=== PATIENT | female | born 1955 | race Caucasian/White ===

== ENCOUNTER 2018-10-19 08:34 | Outpatient (CLI) | payer OTHER ==
--- NOTE | 2018-10-19 11:13 | BD ---
BONE DENSITOMETRY USING DEXA: Date: 10/19/18 HISTORY: Postmenopausal screening for osteoporosis. FINDINGS: Lumbar Spine: BMD (g/cm2) L1 0.978 T-Score: -1.0 Z-Score: 1.5 L2 1.159 T-Score: 1.2 Z-Score: 3.0 L3 1.070 T-Score: -0.1 Z-Score: 1.7 L4 1.020 T-Score: -0.4 Z-Score: 1.6 L1-L4 1.054 T-Score: 0.1 Z-Score: 1.9 Femoral Neck: 0.622 T-Score: -2.0 Z-Score: -0.5 Total Femur: 0.729 T-Score: -1.7 Z-Score: -0.5 IMPRESSION: Osteopenia. POS: SARAH
== END 2018-10-19 08:35 | disposition home or self-care (01) ==
LOC: BICMAMMO 08:34
PROVIDERS: ATTEND Student in an Organized Health Care Education/Training Program
DX: Z13.820 Encounter for screening for osteoporosis (principal); M85.859 Other specified disorders of bone density and structure, unspecified thigh
CPT/HCPCS: 77080

== ENCOUNTER 2018-12-18 10:16 | Outpatient (CLI) | payer OTHER ==
[2018-12-18] MEDS ORDERED: Iopamidol 370 76% 100 ML VIAL ONE (12:22)
--- NOTE | 2018-12-18 14:32 | CT ---
Exam: Abdomen CT with and without contrast HISTORY: Abnormal liver serum enzymes. History of resection of the left lower intestine. COMPARISON: None TECHNIQUE: Abdomen CT is performed with and without contrast FINDINGS: Lung bases: Minimal atelectatic change Liver: Appropriate attenuation of the noncontrast series. There is appropriate enhancement arterial p hase as well as portal venous phase. No enhancing masses. Spleen: Appropriate enhancement Pancreas: Appropriate enhancement Adrenal glands: Symmetric enhancement Lymph nodes: No gastrohepatic, retrocrural or periportal lymphadenopathy Portal vein: Patent Gallbladder: Unremarkable Kidneys: Symmetric enhancement kidneys. Bilaterally no obstructive uropathy. There is a well-circumsc ribed hypodensity in the left renal cortex with attenuation coefficient of 4 Hounsfield units on the noncontrast sequence. Hypodensity corresponds to a 2.1 x 1.6 cm cyst. Mesentery: No mass, nephropathy, free air or free fluid Alimentary canal: Limited evaluation due to lack of oral contrast administration. With regards to the visualized alimentary canal, no evidence of bowel obstruction. The ileocecal junction is normal. Normal caliber appendix. Scattered fecal material in a nondistended/nondilated colon. No lytic or blastic lesions in the osseous structures IMPRESSION: No abnormal enhancing masses within the liver.
== END 2018-12-18 10:17 | disposition home or self-care (01) ==
LOC: CT 10:16
DX: R74.8 Abnormal levels of other serum enzymes (principal)
CPT/HCPCS: 74170; 82565; Q9967